=== PATIENT | male | born 2000 | race Caucasian/White ===

== ENCOUNTER 2024-06-11 12:23 | Emergency (ER) | payer MEDICAID ==
[~2024-06-11] VITALS: Ht 160 cm; Wt 63.6 kg
[2024-06-11 12:36] VITALS: TEMP 97.2
[2024-06-11 14:01] VITALS: BP 121/68; PULSE 76; RESP 15; O2SAT 99
== END 2024-06-11 14:03 | disposition home or self-care (01) ==
LOC: ER 12:23
DX: Z00.00 Encounter for general adult medical examination without abnormal findings (principal); I49.9 Cardiac arrhythmia, unspecified
CPT/HCPCS: 93005; 99283